=== PATIENT | male | born 1970 | race Caucasian/White ===

== ENCOUNTER 2016-11-10 10:25 | Day surgery (SDC) | payer BC ==
[2016-11-09 15:55] VITALS: BMI 27.8
[2016-11-10 11:03] VITALS: TEMP 98.3
[2016-11-10 18:13] VITALS: BP 114/70; PULSE 62
--- NOTE | 2016-11-11 15:09 | PATH ---
Surgical Pathology Report Patient Name: CHENG MAI [facility]. Rec. #: [id number] /Age/Gender: 1970 (Age: 46) / M Account: [id number] Location: Taken: 11/10/2016 Received: 11/10/2016 Reported: 11/11/2016 Physicians: Sanjiv Li M.D. Specimen(s) Received LIVER BIOPSY Clinical History 46-year-old with abnormal liver function tests and fatty liver. Final Diagnosis LIVER, NEEDLE CORE BIOPSY: MILD MACROVESICULAR STEATOSIS. TRICHROME STAIN SHOWS NO SIGNIFICANT INCREASE IN FIBROSIS. IRON STAIN SHOWS NO INCREASED IRON DEPOSITION. Comment: Recommend correlation with clinical findings and follow up as clinically indicated. Electronically Signed Aries Trujillo M.D. Gross Description Received in formalin labelled "liver tissue" is 4 cores of verde tissue each of which is less than 0.1 cm in diameter, and between 0.6 and 1.6 cm in length. Totally submitted in one cassette. [facility]/11/10/2016 [facility]/11/10/2016
== END 2016-11-10 18:21 | disposition home or self-care (01) ==
LOC: JRADIR 10:25
PROVIDERS: ATTEND Internal Medicine Gastroenterology
PROC: BF45ZZZ Ultrasonography of Liver (ICD-10-PCS; principal; 2016-11-10)
PROC: 0FB03ZX Excision of Liver, Percutaneous Approach, Diagnostic (ICD-10-PCS; 2016-11-10)
DX: K76.0 Fatty (change of) liver, not elsewhere classified (principal)
CPT/HCPCS: 36415; 76942-TC; 85610; 87899; 88307-TC; 88313-TC

== ENCOUNTER 2018-04-21 08:22 | Day surgery (SDC) | payer BC ==
[2018-04-21 08:44] VITALS: BMI 28.5
[2018-04-21] MEDS ORDERED: PROPOFOL 20 ML ONE ×2 (09:53→10:57)
[2018-04-21] MEDS ORDERED: ESMOLOL HCL 100,000 MCG/10 ML VIAL ONE (09:54)
[2018-04-21] MEDS ORDERED: MIDAZOLAM HCL 2 MG/2 ML SINGLE DOSE VIAL ONE (09:55)
--- NOTE | 2018-04-21 10:03 | HP ---
Admitting History and Physical - Primary Care Physician PCP: Romina Devries - Admission Chief Complaint: bulge at umbilicus for 1 year; getting worse History of Present Illness: As above; now interfering w/ADL History Source: Patient Limitations to Obtaining History: No Limitations - Past Medical History PATIENT CARE DIRECTOR: No: Alzheimer's, CVA, Dementia, Migraine, Multiple Sclerosis, Peripheral Neuropathy, Parkinson's, Seizure, Syncope, TIA, Vertigo, Other Cardiovascular: No: AFIB, Aneurysm, Aortic Insufficiency, Aortic Stenosis, CAD, CHF, Deep Vein Thrombosis, HTN, Hyperlipdemia, ID, Mitral Insufficiency, Mitral Stenosis, Murmur, Pulmonary Hypertension, Other Pulmonary: No: Asthma, Bronchitis, Cancer, COPD, O2 Dependent, Pneumonia, Previously Intubated, Pulmonary Embolus, Pulmonary Fibrosis, Sleep Apnea, Other Gastrointestinal: No: Ascites, Cancer, Constipation, Crohn's Disease, Diverticulitis, Diverticulosis, Esophageal Varices, Gastritis, GERD, GI Bleed, Hemorrhoids, Hiatal Hernia, Inflamatory Bowel Disease, Irritable Bowel Disease, Pancreatitis, Peptic Ulcer Disease, Ulcerative Colitis, Other Hepatobiliary: No: Cirrhosis, Cholelithiasis, Cholecystitis, Choledocholithiasis , Hepatitis A, Hepatitis B, Hepatitis C, Other Renal/: No: Renal Failure, Renal Inusuff, BPH, Cancer, Hematuria, Hemodialysis , Neurogenic Bladder, Renal Calculi, UTI, Other Heme/Onc: No: Anemia, B12 Deficiency, Bleeding Disorder, Cancer, Current Chemotherapy, Current Radiation Therapy, Hemochromatosis, Hypercoaguable State, Myeloproliferative Synd, Sickle Cell Disease, Sickle Cell Trait, Thrombocytopenia, Other Infectious Disease: No: AIDS, C-Diff, Herpes Zoster, HIV, MRSA, STD's, Tuberculosis, VREF, Other Psych: No: Addictions, Anxiety, Bipolar, Depression, Panic, Psychosis, Schizophrenia, Other Musculoskeletal: No: Bursitis, Chronic low back pain, Hemiparesis, Hemiplegia, Osteoarthritis, Paraplegia, Other Rheumatology: No: Fibromyalgia, Gout, Lupus, Rheumatoid Arthritis, Sarcoidosis, Vasculitis, Other ENT: No: Allergic Rhinitis, Sinusitis, Other Endocrine: No: [place]'s Disease, Vesper's Disease, Diabetes Insipidus, Diabetes Mellitus, Hyperparathyroidism, Hyperthyroidism, Hypothyroidism, Osteopenia, SIADH, Other Dermatology: No: Basal Cell, Cellulitis, Eczema, Melanoma, Psoriasis, Squamous Cell, Other - Past Surgical History Past Surgical History: Yes: Hernia Repair ([facility]) - Smoking History Smoking history: Never smoked Have you smoked in the past 12 months: No If you are a former smoker, when did you quit?: 2007 - Alcohol/Substance Use Hx Alcohol Use: No History of Substance Use: reports: None - Social History Usual Living Arrangement: Yes: With Spouse ADL: Independent 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 History of Recent Travel: No Home Medications - Allergies Allergies/Adverse Reactions: Allergies Allergy/AdvReac Type Severity Reaction Status Date / Time No Known Drug Allergies Allergy Verified 11/09/16 15:47 - Home Medications Home Medications: Ambulatory Orders Multivitamin [Daily Multiple Vitamin] 1 each PO DAILY 04/14/18 Physical Examination Vital Signs: Vital Signs Temperature 97.9 F 04/21/18 08:53 Pulse Rate 79 04/21/18 08:53 Respiratory Rate 18 04/21/18 08:53 Blood Pressure 112/80 04/21/18 08:53 O2 Sat by Pulse Oximetry (%) 96 04/21/18 08:53 Constitutional: Yes: Well Nourished, No Distress Eyes: Yes: WNL HENT: Yes: WNL Neck: Yes: WNL Cardiovascular: Yes: WNL Respiratory: Yes: WNL Gastrointestinal: Yes: Hernia (reducible umbilical hernia) ...Rectal Exam: Yes: Deferred Renal/: Yes: WNL Musculoskeletal: Yes: WNL Extremities: Yes: WNL Peripheral Pulses WNL: Yes Integumentary: Yes: WNL Neurological: Yes: WNL ...Motor Strength: WNL Problem List - Problems (1) Umbilical hernia Code(s): K42.9 - UMBILICAL HERNIA WITHOUT OBSTRUCTION OR GANGRENE Qualifiers: Obstruction and gangrene presence: without obstruction or gangrene Qualified Code(s): K42.9 - Umbilical hernia without obstruction or gangrene Assessment/Plan umbilical hernia for repair; r/b/t/a's d/w him and consent obtained; possible recurrence discussed. Visit type - Emergency Visit Emergency Visit: No - New Patient This patient is new to me today: Yes Date on this admission: 04/21/18 - Critical Care Critical Care patient: No
[2018-04-21] MEDS ORDERED: ROCURONIUM BROMIDE 50 MG/5 ML VIAL ONE (10:09)
[2018-04-21] MEDS ORDERED: ceFAZolin SODIUM 1 GM VIAL IVPB ONE (10:18)
[2018-04-21] MEDS ORDERED: GLYCOPYRROLATE 0.2 MG/1 ML VIAL ONE (10:55)
[2018-04-21] MEDS ORDERED: DEXAMETHASONE SOD PHOSPHATE 4 MG/1 ML VIAL ONE (10:55)
[2018-04-21] MEDS ORDERED: ceFAZolin SODIUM 1 GM VIAL ONE (10:55)
[2018-04-21] MEDS ORDERED: KETOROLAC TROMETHAMINE 30 MG/1 ML VIAL ONE (10:55)
[2018-04-21] MEDS ORDERED: LIDOCAINE HCL/PF 2% SDV 5ML VIAL ONE (10:55)
[2018-04-21] MEDS ORDERED: SODIUM CHLORIDE 0.9% P/F 10 ML VIAL IJ ONE (10:55)
[2018-04-21] MEDS ORDERED: ePHEDrine SULFATE 50 MG/1 ML AMPULE ONE (10:57)
[2018-04-21] MEDS ORDERED: BUPIVACAINE HCL/PF 0.5% (5MG/ML) 10 ML VIAL IJ ONE (10:58)
[2018-04-21] MEDS ORDERED: NEOSTIGMINE METHYLSULFATE 0.5 MG/ML - 10 ML MDV ONE (11:01)
--- NOTE | 2018-04-21 11:23 | SURG ---
Surgery Guitar Repairer Note Guitar Repairer: Mckinley Diez PA-C Date of Service: 04/21/18 Diagnosis: Umbilical hernia Procedure: open umbilical hernia repair I was present for the entirety of the operative procedure. For further detail, please refer to operative report.
[2018-04-21] MEDS ORDERED: ONDANSETRON 4 MG/2 ML VIAL IVPUSH PRN (12:07)
[2018-04-21] MEDS ORDERED: LACTATED RINGERS SOLUTION 1,000 ML IV SCH (12:15)
--- NOTE | 2018-04-21 12:49 | OP ---
Operative Note - Note: Operative Date: 04/21/18 Pre-Operative Diagnosis: umbilical hernia Operation: repair incarcerated umbilical hernia Findings: incarcerated omentum and preperitoneal fat; defect 1.5 cm. Post-Operative Diagnosis: Other (incarcerated umbilical hernia) Surgeon: Hunter Phelps Press Room Supervisor: Mckinley Diez Anesthesiologist/LEGISLATORS: Yony Santiago Anesthesia: General Specimens Removed: fat/sac/omentum Estimated Blood Loss (mls): 5
[2018-04-21 13:32] VITALS: TEMP 98.3
[2018-04-21 14:37] VITALS: BP 121/85; PULSE 102
--- NOTE | 2018-04-22 13:03 | PATH ---
Surgical Pathology Report Patient Name: CHENG MAI [facility]. Rec. #: [id number] /Age/Gender: 1970 (Age: 47) / M Account: [id number] Location: U SURGICAL Taken: 04/21/2018 Received: 04/21/2018 Reported: 04/22/2018 Physicians: Hunter Phelps MD Specimen(s) Received UMBILICAL HERNIA SAC Clinical History Umbilical hernia Final Diagnosis UMBILICAL HERNIA SAC, REPAIR: BENIGN FIBROMEMBRANOUS TO FIBROADIPOSE TISSUE CONSISTENT WITH HERNIA SAC. Electronically Signed Gilda Johnson M.D. Gross Description Received in formalin labeled "umbilical hernia," is a 5.0 x 4.4 x 1.2 cm aggregate of multiple portions of yellow, lobulated adipose tissue with attached fibromembranous tissue. Head Orthopedic Team Physician sections are submitted in one cassette. DL/04/21/2018 saudi04/21/2018
--- NOTE | 2018-04-26 10:15 | OP ---
DATE OF OPERATION: 04/21/2018 PREOPERATIVE DIAGNOSIS: Umbilical hernia. POSTOPERATIVE DIAGNOSIS: Incarcerated umbilical hernia. PROCEDURE: Repair of incarcerated umbilical hernia. SURGEON: Hunter Phelps MD IS MANAGER: Mckinley Diez PA-C ANESTHESIA: General. OPERATIVE FINDINGS: There was incarcerated omentum and preperitoneal fat. The defect in the abdominal wall was 1.5 cm in greatest dimension. The rest of the findings were unremarkable. PROCEDURE: The patient was placed on the operating table in the supine position and after the induction of general anesthesia the patient's abdomen was prepped with ChloraPrep and draped in sterile fashion. A timeout was taken and an infraumbilical skin fold incision was made from the 3 to 9 o'clock position using a scalpel. This was taken down through the subcutaneous fat to the abdominal wall and then the umbilical stalk was bluntly encircled. The umbilicus was then dissected off the sac which was entered and the previously noted findings were observed. Redundant sac and omentum were excised using electrocautery. The incarcerated omentum was clamped, excised and its pedicle ligated with 3-0 Vicryl suture and the omentum sent for pathological examination as well. Next the undersurface of the abdominal wall was cleared with blunt dissection and the hernia defect repaired using multiple 0 Ti-Cron horizontal mattress sutures. Hemostasis was checked for and noted to be good and then the wound was infiltrated with 0.5% Marcaine and 1% Xylocaine in equal concentration. Irrigation was carried out with normal saline and hemostasis verified again and then the umbilicus was tacked down to the abdominal wall with interrupted 3-0 Vicryl. The deep dermis was reapproximated with interrupted 3-0 Vicryl and the skin edges with 4-0 Monocryl in a subcuticular continuous fashion. Dermabond, Steri-Strips and dry sterile dressings were placed and the procedure terminated at this point and the patient aroused from general anesthesia and transferred to the postanesthesia care unit in stable condition, awake and alert. Estimated blood loss 5 mL. Replaced with Crystalloid. Drains none. Specimen hernia sac, omentum and fat to Pathology. I, Hunter Phelps MD, was physically present in the operating room from the time the patient was placed on the operating table until he was transferred to the postanesthesia care unit in accompaniment. MD CLEMENTE Moyer/[id number]
== END 2018-04-21 14:45 | disposition home or self-care (01) ==
LOC: JASU-SURG 08:22
PROVIDERS: ATTEND Surgery
PROC: 0WQF0ZZ Repair Abdominal Wall, Open Approach (ICD-10-PCS; principal; 2018-04-21 10:00)
DX: K42.0 Umbilical hernia with obstruction, without gangrene (principal)
CPT/HCPCS: 88302-TC

== ENCOUNTER 2020-02-05 05:11 | Day surgery (SDC) | payer BC ==
[2020-02-02 20:40] VITALS: BMI 27.4
--- OUTSIDE RECORDS SUMMARY | 2020-02-05 05:15 | XMS ---
:1970 Author Organization [facility] Support Name Relationship Address Phone [facility] Online Unavailable [address] [place] [address] [employer] Unavailable [address] [place] [address] MARIO MAI [address] [place] [address] Re-disclosure Warning The records that you are about to access may contain information from federally- assisted alcohol or drug abuse programs. If such information is present, then the following federally mandated warning applies: This information has been disclosed to you from records protected by federal confidentiality rules (42 CFR part 2). The federal rules prohibit you from making any further disclosure of this information unless further disclosure is expressly permitted by the written consent of the person to whom it pertains or as otherwise permitted by 42 CFR part 2. A general authorization for the release of medical or other information is NOT sufficient for this purpose. The Federal rules restrict any use of the information to criminally investigate or prosecute any alcohol or drug abuse patient.The records that you are about to access may contain highly sensitive health information, the redisclosure of which is protected by Article 27-F of the [facility] Public Health law. If you continue you may haveaccess to information: Regarding HIV / AIDS; Provided by facilities licensed or operated by the [facility] Office of Mental Health; or Provided by the [facility] Office for People With Developmental Disabilities. If such information is present, then the following [facility] mandated warning applies: This information has been disclosed to you from confidential records which are protected by state law. State law prohibits you from making any further disclosure of this information without the specific written consent of the person to whom it pertains, or as otherwise permitted by law. Any unauthorized further disclosure in violation of state law may result in a fine or fdc sentence or both. A general authorization for the release of medical or other information is NOT sufficient authorization for further disclosure. Immunizations Vaccine Date Status Description Data Source(s) New in 2011. IIV4 01/22/2020 12:00:00 completed [facility] (Ammir Kayce AM EDT Physician) Insurance Providers Payer name Policy type / Policy ID Covered Covered green party's Policy Plan Coverage type green party ID relationship to [employer] Information [place] PPO [id number] S [id number] PPO [id number] [place] [id number] Problems, Conditions, and Diagnoses Code Display Name Description Problem Type Effective Data Sour ce(s) Dates Z20.828 Contact with and CONTACT WITH AND Problem 01/22/2020 [facility] (Ammir (suspected) (SUSPECTED) 12:00:00 AM Kayce exposure to other EXPOSURE TO OTHER EDT Physician) viral communicable VIRAL COMMUNICABLE diseases DISEASES Z23 Encounter for ENCOUNTER FOR Problem 01/22/2020 [facility] ( Ammir immunization IMMUNIZATION 12:00:00 AM Kayce EDT Physician) Z20.828 Contact with and CONTACT WITH AND Problem 01/22/2020 [facility] (Ammir (suspected) (SUSPECTED) 12:00:00 AM Kayce exposure to other EXPOSURE TO OTHER EDT Physician) viral communicable VIRAL COMMUNICABLE diseases DISEASES Surgeries/Procedures Procedure Description Date Indications Data Source(s) Documentation of current 01/22/2020 [facility] (Ammir Kayce medications (procedure) 12:00:00 AM EDT P hysician) Documentation of current 01/22/2020 [facility] (Ammir Kayce medications (procedure) 12:00:00 AM EDT P hysician) Documentation of current 01/22/2020 [facility] (Ammir Kayce medications (procedure) 12:00:00 AM EDT P hysician) Documentation of current 01/22/2020 [facility] (Ammir Kayce medications (procedure) 12:00:00 AM EDT P hysician) Documentation of current 01/22/2020 [facility] (Ammir Kayce medications (procedure) 12:00:00 AM EDT P hysician) Documentation of current 01/22/2020 [facility] (Ammir Kayce medications (procedure) 12:00:00 AM EDT P hysician) Documentation of current 01/22/2020 [facility] (Ammir Kayce medications (procedure) 12:00:00 AM EDT P hysician) Documentation of current 01/22/2020 [facility] (Ammir Kayce medications (procedure) 12:00:00 AM EDT P hysician) Documentation of current 01/22/2020 [facility] (Ammir Kayce medications (procedure) 12:00:00 AM EDT P hysician) Documentation of current 01/22/2020 [facility] (Ammir Kayce medications (procedure) 12:00:00 AM EDT P hysician) Documentation of current 01/22/2020 [facility] (Ammir Kayce medications (procedure) 12:00:00 AM EDT P hysician) Documentation of current 07/13/2019 [facility] (Ammir Kayce medications (procedure) 12:00:00 AM EDT P hysician) Documentation of current 07/13/2019 [facility] (Ammir Kayce medications (procedure) 12:00:00 AM EDT P hysician) Documentation of current 07/13/2019 [facility] (Ammir Kayce medications (procedure) 12:00:00 AM EDT P hysician) Documentation of current 07/13/2019 [facility] (Ammir Kayce medications (procedure) 12:00:00 AM EDT P hysician) Documentation of current 07/13/2019 [facility] (Ammir Kayce medications (procedure) 12:00:00 AM EDT P hysician) Documentation of current 07/13/2019 [facility] (Ammir Kayce medications (procedure) 12:00:00 AM EDT P hysician) Documentation of current 07/13/2019 [facility] (Ammir Kayce medications (procedure) 12:00:00 AM EDT P hysician) Documentation of current 07/13/2019 [facility] (Ammir Kayce medications (procedure) 12:00:00 AM EDT P hysician) Documentation of current 07/13/2019 [facility] (Ammir Kayce medications (procedure) 12:00:00 AM EDT P hysician) Documentation of current 07/13/2019 [facility] (Ammir Kayce medications (procedure) 12:00:00 AM EDT P hysician) Documentation of current 07/13/2019 [facility] (Ammir Kayce medications (procedure) 12:00:00 AM EDT P hysician) Documentation of current 07/13/2019 [facility] (Ammir Kayce medications (procedure) 12:00:00 AM EDT P hysician) Results ID Date Data Source [id number] 01/31/2020 09:56:00 AM EDT [facility] Name Value Range Interpretation Description Data Sup porting Code Source(s) Document(s ) SARS [facility] coronavirus 2 RNA This lab was ordered by [facility] and reported by [facility]. ID Date Data Source [id number] 10/24/2019 05:08:00 PM EDT [facility] Name Value Range Interpretation Description Data Sup porting Code Source(s) Document(s ) SARS [facility] coronavirus 2 RNA This lab was ordered by [facility] and reported by [facility]. ID Date Data Source [id number] 07/13/2019 12:00:00 AM EDT [facility] (Ammir Kayce Physician) Name Value Range Interpretation Code Description Data Akila rce(s) Supporting Document(s ) %PSA, Test not Normal (applies to [facility] (Amm ir FREE performed. non-numeric Kayce results) Physician) ID Date Data Source [id number] 07/13/2019 12:00:00 AM EDT [facility] (Ammir Kayce Physician) Name Value Range Interpretation Code Description Data Akila rce(s) Supporting Document(s ) PSA, FREE 0.25 ng/mL Normal (applies to [facility] (Am ermias non-numeric Kayce results) Physician) ID Date Data Source [id number] 07/13/2019 12:00:00 AM EDT [facility] (Ammir Kayce Physician) Name Value Range Interpretation Code Description Data Supporting Source(s) Document(s ) PSA, TOTAL 1.71 ng/mL Normal (applies to [facility] (A mmir non-numeric Kayce results) Physician) ID Date Data Source [id number] 07/13/2019 12:00:00 AM EDT [facility] (Ammir Kayce Physician) Name Value Range Interpretation Description Data Sup porting Code Source(s) Document(s ) BILIRUBIN, TOTAL NEGATIVE Normal (applies [facility] to non-numeric (Ammir results) Kayce Physician) GLUCOSE UA NEGATIVE Normal (applies [facility] to non-numeric (Ammir results) Kayce Physician) Ketones NEGATIVE Normal (applies [facility] [Presence] in to non-numeric (Ammir Blood by Tablet results) Kayce Physician) Blood [Presence] NEGATIVE Normal (applies [facility] in Urine by to non-numeric (Ammir Visual results) Kayce Physician) Specific gravity 1.011 SG Normal (applies [facility] of Pericardial units to non-numeric (Ammir fluid by results) Kayce Refractometry Physician) pH of Lower 6 Ph units Normal (applies [facility] respiratory to non-numeric (Ammir specimen results) Kayce Physician) Urobilinogen 0-2.0 Normal (applies [facility] [Presence] in to non-numeric (Ammir Urine by results) Kayce Automated test Physician) strip Protein NEGATIVE Normal (applies [facility] [Mass/volume] in to non-numeric (Ammir Lower results) Kayce respiratory Physician) specimen Nitrite NEGATIVE Normal (applies [facility] [Presence] in to non-numeric (Ammir Urine by Test results) Kayce strip Physician) Leukocyte NEGATIVE Normal (applies [facility] esterase to non-numeric (Ammir [Presence] in results) Kayce Body fluid by Physician) Automated test strip Color of YELLOW Normal (applies [facility] Peritoneal to non-numeric (Ammir dialysis fluid results) Kayce Physician) TRANSPARENCY CLEAR Normal (applies [facility] to non-numeric (Ammir results) Kayce Physician) WBC`S 0-5 Normal (applies [facility] to non-numeric (Ammir results) Kayce Physician) MUCOUS FEW Normal (applies [facility] to non-numeric (Ammir results) Kayce Physician) ID Date Data Source [id number] 07/13/2019 12:00:00 AM EDT [facility] (Ammir Kayce Physician) Name Value Range Interpretation Description Data Sup porting Code Source(s) Document(s ) TSH,3RD 2.33 Normal (applies to [facility] GENERATION uIU/mL non-numeric (Ammir results) Kayce Physician) T4 FREE, 1.25 Normal (applies to [facility] THYROXINE ng/dL non-numeric (Ammir results) Kayce Physician) ID Date Data Source [id number] 07/13/2019 12:00:00 AM EDT [facility] (Ammir Kayce Physician) Name Value Range Interpretation Description Data Sup porting Code Source(s) Document(s ) SEX HORMONE 32.4 Normal (applies [facility] BINDING GLOBU nmol/L to non-numeric (Ammir results) Kayce Physician) TESTOSTERONE 202.17 Normal (applies [facility] TOTAL ng/dL to non-numeric (Ammir results) Kayce Physician) TESTOSTERONE 3.7 Normal (applies [facility] FREE CALCULATED ng/dL to non-numeric (Ammir results) Kayce Physician) FREE 1.8 % Normal (applies [facility] TESTOSTERONE% to non-numeric (Ammir results) Kayce Physician) ID Date Data Source [id number] 07/13/2019 12:00:00 AM EDT [facility] (Ammir Kayce Physician) Name Value Range Interpretation Description Data Sup porting Code Source(s) Document(s ) VITAMIN B12 716 pg/mL Normal (applies to [facility] (A mmir non-numeric Kayce results) Physician) FOLATE SERUM 40.7 Normal (applies to [facility] ( Ammir ng/mL non-numeric Kayce results) Physician) ID Date Data Source [id number] 07/13/2019 12:00:00 AM EDT [facility] (Ammir Kayce Physician) Name Value Range Interpretation Description Data Sup porting Code Source(s) Document(s ) VITAMIN D 29.02 Below low normal [facility] (Ammir 25-HYDROXY ng/mL Kayce Physician) ID Date Data Source [id number] 07/13/2019 12:00:00 AM EDT [facility] (Ammir Kayce Physician) Name Value Range Interpretation Description Data Sup porting Code Source(s) Document(s ) Cholesterol 216 Above high normal [facility] [Moles/volume] mg/dL (Ammir in Pericardial Kayce fluid Physician) LDL CALCULATION 118.0 Normal (applies [facility] mg/dL to non-numeric (Ammir results) Kayce Physician) CHOL/HDL RATIO 3.60 Normal (applies [facility] ratio to non-numeric (Ammir results) Kayce Physician) HDL CHOLESTEROL 60 mg/dL Normal (applies [facility] to non-numeric (Ammir results) Kayce Physician) VLDL CALCULATION 38.0 Normal (applies [facility] mg/dl to non-numeric (Ammir results) Kayce Physician) TRIGLYCERIDES 190 Above high normal [facility] mg/dL (Ammir Kayce Physician) ID Date Data Source [id number] 07/13/2019 12:00:00 AM EDT [facility] (Ammir Kayce Physician) Name Value Range Interpretation Description Data Sup porting Code Source(s) Document(s ) RBC 4.8 Normal (applies [facility] 10(6)/uL to non-numeric (Ammir results) Kayce Physician) WBC 6.5 Normal (applies [facility] 10(3)/uL to non-numeric (Ammir results) Kayce Physician) Hemoglobin 15.2 g/dL Normal (applies [facility] [Mass/volume] to non-numeric (Ammir in Mixed venous results) Kayce blood by Physician) Oximetry MCV 90.1 fL Normal (applies [facility] to non-numeric (Ammir results) Kayce Physician) Hematocrit 43.6 % Normal (applies [facility] [Pure volume to non-numeric (Ammir fraction] of results) Kayce Blood by Physician) Automated count MCH 31 pg Normal (applies [facility] to non-numeric (Ammir results) Kayce Physician) RDWSD 38.8 fL Normal (applies [facility] to non-numeric (Ammir results) Kayce Physician) MCHC 35 g/dL Normal (applies [facility] to non-numeric (Ammir results) Kayce Physician) RDWCV 11.8 % Normal (applies [facility] to non-numeric (Ammir results) Kayce Physician) Platelet Count 271 Normal (applies [facility] 10(3)/uL to non-numeric (Ammir results) Kayce Physician) MPV 10.1 fL Normal (applies [facility] to non-numeric (Ammir results) Kayce Physician) Neutrophil Abs 2.96 Normal (applies [facility] 10(3)/uL to non-numeric (Ammir results) Kayce Physician) Lymphocyte Abs 2.76 Normal (applies [facility] 10(3)/uL to non-numeric (Ammir results) Kayce Physician) Monocyte Abs 0.44 Normal (applies [facility] 10(3)/uL to non-numeric (Ammir results) Kayce Physician) Eosinophil Abs 0.25 Normal (applies [facility] 10(3)/uL to non-numeric (Ammir results) Kayce Physician) Basophil Abs 0.04 Normal (applies [facility] 10(3)/uL to non-numeric (Ammir results) Kayce Physician) Immature 0.01 Normal (applies [facility] Granulocyte Abs 10(3)/uL to non-numeric (Ammir results) Kayce Physician) Neutrophil % 45.90 % Normal (applies [facility] to non-numeric (Ammir results) Kayce Physician) Lymphocyte % 43 % Normal (applies [facility] to non-numeric (Ammir results) Kayce Physician) Monocyte % 6.8 % Normal (applies [facility] to non-numeric (Ammir results) Kayce Physician) Eosinophil % 3.9 % Normal (applies [facility] to non-numeric (Ammir results) Kayce Physician) Basophil % 0.6 % Normal (applies [facility] to non-numeric (Ammir results) Kayce Physician) Immature 0.20 % Normal (applies [facility] Granulocyte % to non-numeric (Ammir results) Kayce Physician) NRBC % 0.2 % Above high normal [facility] (Ammir Kayce Physician) NRBC Abs 0.01 Normal (applies [facility] 10(3)/uL to non-numeric (Ammir results) Kayce Physician) ID Date Data Source [id number] 07/13/2019 12:00:00 AM EDT [facility] (Ammir Akyce Physician) Name Value Range Interpretation Description Data Sup porting Code Source(s) Document(s ) Hemoglobin A1c 5.4 % Normal (applies to [facility] (Ammir in Blood non-numeric Kayce results) Physician) ID Date Data Source [id number] 07/13/2019 12:00:00 AM EDT [facility] (Ammir Kayce Physician) Name Value Range Interpretation Description Data Sup porting Code Source(s) Document(s ) SODIUM, SERUM 138 Normal (applies [facility] mEq/L to non-numeric (Ammir results) Kayce Physician) GLUCOSE 81 mg/dL Normal (applies [facility] NONFASTING,SERUM to non-numeric (Ammir results) Kayce Physician) POTASSIUM, SERUM 4.6 Normal (applies [facility] mEq/L to non-numeric (Ammir results) Kayce Physician) Carbon dioxide 25 mEq/L Normal (applies [facility] [VFr/PPres] in to non-numeric (Ammir Gas delivery results) Kayce system Physician) CHLORIDE, SERUM 104 Normal (applies [facility] mEq/L to non-numeric (Ammir results) Kayce Physician) Anion gap in 13.6 Normal (applies [facility] Body fluid mEq/L to non-numeric (Ammir results) Kayce Physician) CREATININE, 1.00 Normal (applies [facility] SERUM mg/dL to non-numeric (Ammir results) Kayce Physician) BLOOD UREA 14 mg/dL Normal (applies [facility] NITROGEN to non-numeric (Ammir results) Kayce Physician) CALCIUM, SERUM 9.7 Normal (applies [facility] mg/dL to non-numeric (Ammir results) Kayce Physician) Microalbumin 4.7 g/dL Normal (applies [facility] [Mass/time] in to non-numeric (Ammir Urine collected results) Kayce for unspecified Physician) duration TOTAL PROTEIN 7.6 g/dL Normal (applies [facility] to non-numeric (Ammir results) Kayce Physician) Globulin 2.9 gldl Normal (applies [facility] [Mass/time] in to non-numeric (Ammir 24 hour Urine results) Kayce Physician) BILIRUBIN, TOTAL 0.5 Normal (applies [facility] mg/dL to non-numeric (Ammir results) Kayce Physician) A/G RATIO 1.62 Normal (applies [facility] g/dl to non-numeric (Ammir results) Kayce Physician) ALKALINE 154 U/L Above high normal [facility] PHOSPHATASE, ALP (Ammir Kayce Physician) ALT (SGPT) 175 U/L Above high normal [facility] (Ammir Kayce Physician) AST 68 U/L Above high normal [facility] (Ammir Kayce Physician) EGFR NON AFR 85 Normal (applies [facility] ENGLISH mL/min/1 to non-numeric (Ammir .73m2 results) Kayce Physician) EGFR AFR 103 Normal (applies [facility] ENGLISH mL/min/1 to non-numeric (Ammir .73m2 results) Kayce Physician) ID Date Data Source [id number] 07/13/2019 12:00:00 AM EDT [facility] (Ammir Kayce Physician) Name Value Range Interpretation Code Description Data Akila rce(s) Supporting Document(s ) %PSA, Test not Normal (applies to [facility] (Amm ir FREE performed. non-numeric Kayce results) Physician) ID Date Data Source [id number] 07/13/2019 12:00:00 AM EDT [facility] (Ammir Kayce Physician) Name Value Range Interpretation Code Description Data Supporting Source(s) Document(s ) PSA, TOTAL 1.71 ng/mL Normal (applies to [facility] (A mmir non-numeric Kayce results) Physician) ID Date Data Source [id number] 07/13/2019 12:00:00 AM EDT [facility] (Ammir Kayce Physician) Name Value Range Interpretation Description Data Sup porting Code Source(s) Document(s ) BILIRUBIN, TOTAL NEGATIVE Normal (applies [facility] to non-numeric (Ammir results) Kayce Physician) GLUCOSE UA NEGATIVE Normal (applies [facility] to non-numeric (Ammir results) Kayce Physician) Ketones NEGATIVE Normal (applies [facility] [Presence] in to non-numeric (Ammir Blood by Tablet results) Kayce Physician) Blood [Presence] NEGATIVE Normal (applies [facility] in Urine by to non-numeric (Ammir Visual results) Kayce Physician) Specific gravity 1.011 SG Normal (applies [facility] of Pericardial units to non-numeric (Ammir fluid by results) Kayce Refractometry Physician) pH of Lower 6 Ph units Normal (applies [facility] respiratory to non-numeric (Ammir specimen results) Kayce Physician) Protein NEGATIVE Normal (applies [facility] [Mass/volume] in to non-numeric (Ammir Lower results) Kayce respiratory Physician) specimen Urobilinogen 0-2.0 Normal (applies [facility] [Presence] in to non-numeric (Ammir Urine by results) Kayce Automated test Physician) strip Nitrite NEGATIVE Normal (applies [facility] [Presence] in to non-numeric (Ammir Urine by Test results) Kayce strip Physician) Leukocyte NEGATIVE Normal (applies [facility] esterase to non-numeric (Ammir [Presence] in results) Kayce Body fluid by Physician) Automated test strip Color of YELLOW Normal (applies [facility] Peritoneal to non-numeric (Ammir dialysis fluid results) Kayce Physician) TRANSPARENCY CLEAR Normal (applies [facility] to non-numeric (Ammir results) Kayce Physician) WBC`S 0-5 Normal (applies [facility] to non-numeric (Ammir results) Kayce Physician) MUCOUS FEW Normal (applies [facility] to non-numeric (Ammir results) Kayce Physician) ID Date Data Source [id number] 07/13/2019 12:00:00 AM EDT [facility] (Ammir Kayce Physician) Name Value Range Interpretation Description Data Sup porting Code Source(s) Document(s ) TSH,3RD 2.33 Normal (applies to [facility] GENERATION uIU/mL non-numeric (Ammir results) Kayec Physician) T4 FREE, 1.25 Normal (applies to [facility] THYROXINE ng/dL non-numeric (Ammir results) Kayce Physician) ID Date Data Source [id number] 07/13/2019 12:00:00 AM EDT [facility] (Ammir Kayce Physician) Name Value Range Interpretation Description Data Sup porting Code Source(s) Document(s ) Cholesterol 216 Above high normal [facility] [Moles/volume] mg/dL (Ammir in Pericardial Kayce fluid Physician) CHOL/HDL RATIO 3.60 Normal (applies [facility] ratio to non-numeric (Ammir results) Kayce Physician) LDL CALCULATION 118.0 Normal (applies [facility] mg/dL to non-numeric (Ammir results) Kayce Physician) HDL CHOLESTEROL 60 mg/dL Normal (applies [facility] to non-numeric (Ammir results) Kayce Physician) VLDL CALCULATION 38.0 Normal (applies [facility] mg/dl to non-numeric (Ammir results) Kayce Physician) TRIGLYCERIDES 190 Above high normal [facility] mg/dL (Ammir Kayce Physician) ID Date Data Source [id number] 07/13/2019 12:00:00 AM EDT [facility] (Ammir Kayce Physician) Name Value Range Interpretation Description Data Sup porting Code Source(s) Document(s ) WBC 6.5 Normal (applies [facility] 10(3)/uL to non-numeric (Ammir results) Kayce Physician) Hemoglobin 15.2 g/dL Normal (applies [facility] [Mass/volume] to non-numeric (Ammir in Mixed venous results) Kayce blood by Physician) Oximetry RBC 4.8 Normal (applies [facility] 10(6)/uL to non-numeric (Ammir results) Kayce Physician) MCV 90.1 fL Normal (applies [facility] to non-numeric (Ammir results) Kayce Physician) Hematocrit 43.6 % Normal (applies [facility] [Pure volume to non-numeric (Ammir fraction] of results) Kayce Blood by Physician) Automated count MCH 31 pg Normal (applies [facility] to non-numeric (Ammir results) Kayce Physician) MCHC 35 g/dL Normal (applies [facility] to non-numeric (Ammir results) Kayce Physician) RDWSD 38.8 fL Normal (applies [facility] to non-numeric (Ammir results) Kayce Physician) RDWCV 11.8 % Normal (applies [facility] to non-numeric (Ammir results) Kayce Physician) MPV 10.1 fL Normal (applies [facility] to non-numeric (Ammir results) Kayce Physician) Platelet Count 271 Normal (applies [facility] 10(3)/uL to non-numeric (Ammir results) Kayce Physician) Neutrophil Abs 2.96 Normal (applies [facility] 10(3)/uL to non-numeric (Ammir results) Kayce Physician) Lymphocyte Abs 2.76 Normal (applies [facility] 10(3)/uL to non-numeric (Ammir results) Kayce Physician) Monocyte Abs 0.44 Normal (applies [facility] 10(3)/uL to non-numeric (Ammir results) Kayce Physician) Eosinophil Abs 0.25 Normal (applies [facility] 10(3)/uL to non-numeric (Ammir results) Kayce Physician) Basophil Abs 0.04 Normal (applies [facility] 10(3)/uL to non-numeric (Ammir results) Kayce Physician) Neutrophil % 45.90 % Normal (applies [facility] to non-numeric (Ammir results) Kayce Physician) Immature 0.01 Normal (applies [facility] Granulocyte Abs 10(3)/uL to non-numeric (Ammir results) Kayce Physician) Lymphocyte % 43 % Normal (applies [facility] to non-numeric (Ammir results) Kayce Physician) Eosinophil % 3.9 % Normal (applies [facility] to non-numeric (Ammir results) Kayce Physician) Monocyte % 6.8 % Normal (applies [facility] to non-numeric (Ammir results) Kayce Physician) Basophil % 0.6 % Normal (applies [facility] to non-numeric (Ammir results) Kayce Physician) NRBC % 0.2 % Above high normal [facility] (Ammir Kayce Physician) Immature 0.20 % Normal (applies [facility] Granulocyte % to non-numeric (Ammir results) Kayce Physician) NRBC Abs 0.01 Normal (applies [facility] 10(3)/uL to non-numeric (Ammir results) Kayce Physician) ID Date Data Source [id number] 07/13/2019 12:00:00 AM EDT [facility] (Ammir Kayce Physician) Name Value Range Interpretation Description Data Sup porting Code Source(s) Document(s ) Hemoglobin A1c 5.4 % Normal (applies to [facility] (Ammir in Blood non-numeric Kayce results) Physician) ID Date Data Source [id number] 07/13/2019 12:00:00 AM EDT [facility] (Ammir Kayce Physician) Name Value Range Interpretation Description Data Sup porting Code Source(s) Document(s ) GLUCOSE 81 mg/dL Normal (applies [facility] NONFASTING,SERUM to non-numeric (Ammir results) Kayce Physician) SODIUM, SERUM 138 Normal (applies [facility] mEq/L to non-numeric (Ammir results) Kayce Physician) POTASSIUM, SERUM 4.6 Normal (applies [facility] mEq/L to non-numeric (Ammir results) Kayce Physician) Carbon dioxide 25 mEq/L Normal (applies [facility] [VFr/PPres] in to non-numeric (Ammir Gas delivery results) Kayce system Physician) CHLORIDE, SERUM 104 Normal (applies [facility] mEq/L to non-numeric (Ammir results) Kayce Physician) Anion gap in 13.6 Normal (applies [facility] Body fluid mEq/L to non-numeric (Ammir results) Kayce Physician) CREATININE, 1.00 Normal (applies [facility] SERUM mg/dL to non-numeric (Ammir results) Kayce Physician) BLOOD UREA 14 mg/dL Normal (applies [facility] NITROGEN to non-numeric (Ammir results) Kayce Physician) CALCIUM, SERUM 9.7 Normal (applies [facility] mg/dL to non-numeric (Ammir results) Kayce Physician) Microalbumin 4.7 g/dL Normal (applies [facility] [Mass/time] in to non-numeric (Ammir Urine collected results) Kayce for unspecified Physician) duration TOTAL PROTEIN 7.6 g/dL Normal (applies [facility] to non-numeric (Ammir results) Kayce Physician) Globulin 2.9 gldl Normal (applies [facility] [Mass/time] in to non-numeric (Ammir 24 hour Urine results) Kayce Physician) BILIRUBIN, TOTAL 0.5 Normal (applies [facility] mg/dL to non-numeric (Ammir results) Kayce Physician) A/G RATIO 1.62 Normal (applies [facility] g/dl to non-numeric (Ammir results) Kayce Physician) ALKALINE 154 U/L Above high normal [facility] PHOSPHATASE, ALP (Ammir Kayce Physician) ALT (SGPT) 175 U/L Above high normal [facility] (Ammir Kayce Physician) AST 68 U/L Above high normal [facility] (Ammir Kayce Physician) EGFR AFR 103 Normal (applies [facility] ENGLISH mL/min/1 to non-numeric (Ammir .73m2 results) Kayce Physician) EGFR NON AFR 85 Normal (applies [facility] ENGLISH mL/min/1 to non-numeric (Ammir .73m2 results) Kayce Physician) Procedure Social History Code Duration Value Status Description Data Source(s ) Smoking 01/22/2020 no history of completed no history of [facility] ( Ammir 12:00:00 AM EDT alcohol abuse, alcohol abuse, R alessia Physician) Patient tobacco Patient tobacco use: patient is use: patient is a a former smoker former smoker Smoking 01/22/2020 Unknown if ever completed Unknown if ever [facility] EN (Ammir 12:00:00 AM EDT smoked smoked Kayce Ph ysician) Smoking 01/22/2020 no history of completed no history of [facility] ( Ammir 12:00:00 AM EDT alcohol abuse, alcohol abuse, R alessia Physician) Patient tobacco Patient tobacco use: patient is use: patient is a a former smoker former smoker Smoking 01/22/2020 Unknown if ever completed Unknown if ever MED[facility] EN (Ammir 12:00:00 AM EDT smoked smoked Kayce Ph ysician) Vital Signs ID Date Data Source UNK Name Value Range Interpretation Code Description Data Source(s) Heart rate 76 /min 76 /min [facility] (Ammir Kayce Physician) Body temperature 97.9 F 97.9 F [facility] ( Ammir Kayce Physician) Inhaled oxygen 98 % 98 % [facility] (Am ermias concentration Kayce Physician) Body mass index 27.3 kg/m2 27.3 kg/m2 [facility] (A mmir (BMI) [Ratio] Kayce Physician) Diastolic blood 80 mm[Hg] 80 mm[Hg] [facility] (A mmir pressure Kayce Physician) Systolic blood 122 mm[Hg] 122 mm[Hg] [facility] (Am ermias pressure Kayce Physician) Body weight 196 lb 196 lb [facility] (Ammir Kayce Physician) Body height 71 in 71 in [facility] (Ammir Kayce Physician) Heart rate 76 /min 76 /min [facility] (Ammir Kayce Physician) Body temperature 97.9 F 97.9 F [facility] ( Ammir Kayce Physician) Inhaled oxygen 98 % 98 % [facility] (Am ermias concentration Kayce Physician) Body mass index 27.3 kg/m2 27.3 kg/m2 [facility] (A mmir (BMI) [Ratio] Kayce Physician) Diastolic blood 80 mm[Hg] 80 mm[Hg] [facility] (A mmir pressure Kayce Physician) Systolic blood 122 mm[Hg] 122 mm[Hg] [facility] (Am ermias pressure Kayce Physician) Body weight 196 lb 196 lb [facility] (Ammir Kayce Physician) Body height 71 in 71 in [facility] (Ammir Kayce Physician) Heart rate 86 /min 86 /min [facility] (Ammir Kayce Physician) Inhaled oxygen 97 % 97 % [facility] (Am ermias concentration Kayce Physician) Body mass index 31.5 kg/m2 31.5 kg/m2 [facility] (A mmir (BMI) [Ratio] Kayce Physician) Diastolic blood 82 mm[Hg] 82 mm[Hg] [facility] (A mmir pressure Kayce Physician) Systolic blood 118 mm[Hg] 118 mm[Hg] [facility] (Am ermias pressure Kayce Physician) Body weight 226 lb 226 lb [facility] (Ammir Kayce Physician) Body height 71 in 71 in [facility] (Ammir Kayce Physician) Heart rate 86 /min 86 /min [facility] (Ammir Kayce Physician) Inhaled oxygen 97 % 97 % [facility] (Am ermias concentration Kayce Physician) Body mass index 31.5 kg/m2 31.5 kg/m2 [facility] (A mmir (BMI) [Ratio] Kayce Physician) Diastolic blood 82 mm[Hg] 82 mm[Hg] [facility] (A mmir pressure Kayce Physician) Systolic blood 118 mm[Hg] 118 mm[Hg] [facility] (Am ermias pressure Kayce Physician) Body weight 226 lb 226 lb [facility]Romina Devries Phys[facility]) Body height 71 in 71 in [facility] (Romina Devries Physician)
[2020-02-05] MEDS ORDERED: PROPOFOL 20 ML ONE ×5 (07:40)
[2020-02-05] MEDS ORDERED: MIDAZOLAM HCL 2 MG/2 ML SINGLE DOSE VIAL ONE (07:40)
--- NOTE | 2020-02-05 08:17 | HP ---
Satellite [facility] - Chief Complaint History of Present Illness: 49 year old man with chronic varicose veins right leg. Complaints of itching, pain and fatigue. History Source: Patient Limitations to Obtaining History: No Limitations - Past Medical History Allergies/Adverse Reactions: Allergies Allergy/AdvReac Type Severity Reaction Status Date / Time No Known Drug Allergies Allergy Verified 02/05/20 06:29 - Current Medications Current Medications: Home Medications Medication Instructions Recorded Multivitamin [Daily Multiple 1 each PO DAILY 04/14/18 Vitamin] Satellite Physical Exam - Physical Examination Vital Signs: Vital Signs Period Temp Pulse Resp BP Sys/Campos Pulse Ox Last 24 Hr 97.9 F 66 16 105/72 100 General Appearance: Well Nourished, Well Developed, Alert & Oriented x3 ENT: Clear Lung: Clear to auscultation Heart: Regular rate & rhythm Abdomen: Soft, No tenderness Extremities: No edema, Other (Large varicose veins medial thigh and calf) Satellite Impression/Plan - Impression/Plan Impression: Symptomatic varicose veins right leg Operative Procedure: Microphlebectomy right leg Date to be Performed: 02/05/20
[2020-02-05] MEDS ORDERED: ceFAZolin 2 GRAM PREMIX BAG IVPB ONE (08:25)
[2020-02-05] MEDS ORDERED: BUPIVACAINE HCL/PF 0.25% (2.5MG/ML) 10 ML VIAL IJ ONE ×2 (08:55)
--- NOTE | 2020-02-05 10:00 | OP ---
Operative Note - Note: Operative Date: 02/05/20 Pre-Operative Diagnosis: Varicose veins right leg Operation: Ligation SFJ. Microphlebectomy right leg, >20 incisions Findings: Multiple varicose veins of medial thigh and calf Post-Operative Diagnosis: Same as Pre-op Surgeon: Elkin Espinoza Anesthesiologist/PLACEMENT ASSISTANT: Alexi Gao Anesthesia: General Specimens Removed: Varicose veins Estimated Blood Loss (mls): 50
[2020-02-05] MEDS ORDERED: ACETAMINOPHEN 325 MG TABLET (FP) PO PRN ×2 (10:02→11:00)
[2020-02-05] MEDS ORDERED: KETOROLAC TROMETHAMINE 30 MG/1 ML VIAL ONE (10:39)
[2020-02-05] MEDS ORDERED: ACETAMINOPHEN INJECTION 100 ML IVPB ONE (10:39)
[2020-02-05] MEDS ORDERED: LACTATED RINGERS SOLUTION 1,000 ML IV SCH (10:45)
[2020-02-05] MEDS ORDERED: ACETAMINOPHEN 1000 MG/100 ML VIAL (NON FORMULARY) IVPB ONE ×2 (10:45→11:33)
--- NOTE | 2020-02-05 10:45 | OP ---
DATE OF OPERATION: 02/05/2020 SURGEON: Gege Robbins MD PROCEDURE: Ligation of right saphenofemoral junction. Micro phlebectomy of right leg, greater than 20 incisions. PREOPERATIVE DIAGNOSIS: Symptomatic varicose veins, right lower extremity. POSTOPERATIVE DIAGNOSIS: Symptomatic varicose veins, right lower extremity. ANESTHESIA: General. ANESTHESIOLOGIST: Alexi Gao MD OPERATIVE FINDINGS: There were multiple large varicosities extending from the right groin to the medial and lateral calf. OPERATIVE PROCEDURE: Following routine patient identification with site and side verification, general anesthesia was induced. The right leg and groin were prepped with ChloraPrep. Timeout was performed. Skin incision was made over the saphenofemoral junction which had been mapped preoperatively with duplex imaging. Subcutaneous tissues were divided with cautery. The proximal greater saphenous vein was dissected free from the surrounding tissues and ligated with 2-0 silk ties at the saphenofemoral junction. It was divided and the distal portion of the vein was then freed for several centimeters where it was again ligated and portion excised. This wound was then closed with interrupted sutures of 3-0 Vicryl in the subcutaneous tissues and a running subcuticular suture of 4-0 Biosyn on the skin. Micro phlebectomy of the varicose veins was then performed in the usual fashion. Prior to coming to the operating room the veins on the leg were marked with ink. Incisions were made over the marked veins with a Lydia blade and the underlying varicosity was elevated with a vein hook. It was grasped with clamps and gently retracted from under the skin until it avulsed. Pressure was applied and the next more distal vein was removed in a similar fashion until all of the marked veins were removed. There were greater than 20 incisions made. The leg was then elevated and washed with saline. The wounds were covered with Xeroform, dry gauze, Combine, Kerlix, Webril and a Coban wrap. Patient was then taken to the recovery room in stable condition. GEGE ROBBINS M.D. [id number]
[2020-02-05] MEDS ORDERED: oxyCODONE HCL 5 MG TABLET PO PRN (11:00)
[2020-02-05] MEDS ORDERED: KETOROLAC TROMETHAMINE 30 MG/1 ML VIAL IVPUSH ONE (11:33)
[2020-02-05 12:24] VITALS: BP 122/87; PULSE 74; TEMP 97.4
--- NOTE | 2020-02-07 15:44 | PATH ---
Surgical Pathology Report Patient Name: CHENG MAI Med. Rec. #: [id number] /Age/Gender: 1970 (Age: 49) / M Account: [id number] Location: [facility] SURGICAL Taken: 02/05/2020 Received: 02/05/2020 Reported: 02/07/2020 Physicians: Elkin Espinoza M.D. Specimen(s) Received VERICOSE VEINS, RIGHT LOWER EXTREMITY Clinical History Varicose veins right leg Final Diagnosis VARICOSE VEINS, LOWER EXTREMITY, RIGHT, MICROPHLEBECTOMY: VEINS WITH MILD INTIMAL HYPERTROPHY AND FIBROSIS. Electronically Signed Gilda Johnson M.D. Gross Description Received in formalin labeled "varicose veins right lower extremity," is a 7.0 x 6.0 x 0.5 cm aggregate of multiple verde, dilated, tortuous portions of vasculature, consistent with varicose veins. Html Web Developer sections are submitted in one cassette. /02/06/2020 saudi/02/06/2020
== END 2020-02-05 12:29 | disposition home or self-care (01) ==
LOC: JASU-SURG 05:11
PROVIDERS: ATTEND Surgery
PROC: 06DY0ZZ Extraction of Lower Vein, Open Approach (ICD-10-PCS; 2020-02-05)
PROC: 06LP0ZZ Occlusion of Right Saphenous Vein, Open Approach (ICD-10-PCS; principal; 2020-02-05 08:00)
DX: I83.811 Varicose veins of right lower extremity with pain (principal)
CPT/HCPCS: 88304-TC; 94760; J0131